=== PATIENT | female | born 1965 | race Caucasian/White ===

== ENCOUNTER 2024-11-28 08:14 | Emergency (ER) | payer OTHER ==
[~2024-11-28] VITALS: Ht 167.6 cm; Wt 100.0 kg
[2024-11-28 08:16] VITALS: O2SAT 100
[2024-11-28 08:49] LABS: BASOPHILS % 0.5 % (0.0-2.0); EOSINOPHILS % 1.2 % (0.0-5.0); HEMATOCRIT. 43.7 % (36.0-48.0); LYMPHOCYTES % 41.9 % (20.0-50.0); MEAN CORPUSCULAR HEMOGLOBIN 28.6 pg (28.0-32.0); MEAN CORPUSCULAR VOLUME 89.3 fL (81.0-99.0); MEAN PLATELET VOLUME 8.9 fl (7.4-10.4); MONOCYTES % 3.4 % (2.0-8.0); PLATELET 209 x1000/uL (130-400); RED CELL DISTRIBUTION WIDTH 13.6 % (11.6-14.6); WHITE BLOOD COUNT 9.9 x1000/uL (4.5-11.0)
[2024-11-28 08:57] LABS: CHLORIDE 106 mEq/L (98-107); POTASSIUM 4.6 mEq/L (3.5-5.1); SODIUM 139 mEq/L (136-145)
[2024-11-28 08:59] LABS: CARBON DIOXIDE 24 mEq/L (21-32)
[2024-11-28 09:00] LABS: CALCIUM 9.7 mg/dL (8.7-10.4)
[2024-11-28] MEDS: METHYLPREDNISOLONE SOD SUCC 125MG/2ML (ACT-O-VIAL) IV ONE (09:03)
[2024-11-28] MEDS: DIPHENHYDRAMINE 50MG/ML VIAL IV ONE (09:03)
[2024-11-28] MEDS: FAMOTIDINE 20MG/2ML VIAL IV ONE (09:03)
[2024-11-28 09:04] VITALS: TEMP 36.7
[2024-11-28 09:05] LABS: CREATININE 0.6 mg/dL (0.6-1.0); GLUCOSE 231 mg/dL (70-105); UREA NITROGEN BLOOD 13 mg/dL (9-23)
[2024-11-28] MEDS: PREDNISONE 20MG TABLET PO ONE (10:38)
[2024-11-28 10:39] VITALS: BP 111/65; PULSE 81; RESP 20; O2SAT 100
== END 2024-11-28 10:47 | disposition home or self-care (01) ==
LOC: ER 08:14
DX: T78.40XA Allergy, unspecified, initial encounter (principal); E11.9 Type 2 diabetes mellitus without complications; E78.00 Pure hypercholesterolemia, unspecified; X58.XXXA Exposure to other specified factors, initial encounter; Y93.89 Activity, other specified; Y92.89 Other specified places as the place of occurrence of the external cause; Y99.8 Other external cause status
CPT/HCPCS: 99284; 96374; 96375; 80048; 85025; 36415; J2919; J7512; J1200; J3490